=== PATIENT | female | born 1995 | race African-American/Black ===

== ENCOUNTER → 2020-11-19 14:02 | Outpatient (CLI) | payer BC, SELFPAY ==
--- NOTE | ~2020-11-19 | US_ITS ---
EXAMINATION: US OB >= 14 weeks Fetus DATE: 11/19/2020 15:10 INDICATION: Second trimester anatomic survey TECHNIQUE: Real-time ultrasound of the pelvis was performed. COMPARISON: None. FINDINGS: There is a single living fetus in vertex presentation. The placenta is anterior and 8.1 cm from the i nternal cervical os. heart rate is 148 beats per minute (bpm). cardiac activity and feta l movement are noted. The amniotic fluid index is subjectively normal. The left ventricular outflow tract is not well demonstrated due to positioning. The following f etal anatomy was identified as normal: 4 chamber heart 3 vessel cord cord insertion kidneys urinary bladder stomach spine diaphragm ventricles cisterna magna cerebellum The following biometric data were obtained: Biparietal diameter (BPD): 5.0 cm; head circumference (HC): 18.6 cm; abdominal circumference (AC): 15 .9 cm; femur length (FL): 3.5 cm. These measurements are concordant. Estimated weight is 403 g +/- 60 g, which correlates with the 6th percentile when 03/23/2021 is used as estimated date of delivery. As single measurements, these parameters are each equal to the following estimated gestational ages w ith ranges of +/- 2 standard deviations: BPD: 21 weeks 1 days ( 19 weeks 3 days - 22 weeks 6 days). HC: 21 weeks 0 days ( 19 weeks 3 days - 22 weeks 3 days). AC: 21 weeks 0 days ( 19 weeks 0 days - 23 weeks 1 days). FL: 21 weeks 2 days ( 19 weeks 4 days - 23 weeks 1 days). estimated gestational age based solely on measurements from this exam is 21 weeks 1 days +/- 1 weeks 3 days. IMPRESSION: 1. Single living fetus in vertex presentation. 2. Estimated weight is 403 g +/- 60 g, which correlates with the 6th percentile when 03/23/2021 is used as estimated date of delivery. 3. Left ventricular outflow tract not well demonstrated due to positioning. Reviewed, dictated and finalized at location A. IMPRESSION: 1. Single living fetus in vertex presentation. 2. Estimated weight is 403 g +/- 60 g, which correlates with the 6th perc entile when 03/23/2021 is used as estimated date of delivery. 3. Left ventricular outflow tract not well demonstrated due to positionin g.
== END ==
PROVIDERS: Visit Provider Obstetrics & Gynecology
DX: Z36.9 Encounter for antenatal screening, unspecified (principal); Z3A.21 21 weeks gestation of pregnancy
CPT/HCPCS: 76805

== ENCOUNTER 2021-03-26 06:06 | Inpatient (IN) | payer BC, SELFPAY ==
--- NOTE | 2021-03-25 16:27 | PC.NURSE ---
PATIENT STATES SHE HAS NOT HAD ANY MISCARRIAGES AND THIS IS HER SECOND HAS PATIENT G 5, P1 AND 3-SAB
[2021-03-26] VITALS (134 sets, daily range): BP systolic 99–135; BP diastolic 55–104; PULSE 63–151; RESP 18; TEMP 36.1–36.6; O2SAT 87–100; BMI 31.4
[2021-03-26 07:09] LABS: Basophils Absolute Auto 0.1 K/mm3 (0.0-0.1); Basophils Percent Auto 0.6 % (0.2-1.2); Eosinophils Absolute Auto 0.2 K/mm3 (0-0.3); Eosinophils Percent Auto 2.5 % (0-4.4); Hematocrit 34.7 % (37.0-47.0); Hemoglobin 11.5 g/dL (12.0-15.0); Immature Granulocyte Absolute 0.08 K/mm3 (0.00-0.031); Lymphocytes Absolute Auto 1.77 K/mm3 (0.9-3.2); Lymphocytes Percent Auto 21.2 % (18.3-44.2); Mean Corpuscular HGB Conc 33.1 g/dl (32-36); Mean Corpuscular Hemoglobin 29.9 pg (26-34); Mean Corpuscular Volume 90.1 fl (80-100); Monocytes Absolute Auto 0.6 K/mm3 (0.1-0.6); Monocytes Percent Auto 7.2 % (2.6-8.5); Neutrophils Absolute Auto 5.6 K/mm3 (1.3-6.7); Neutrophils Percent Auto 67.5 % (45.5-73.1); Platelet Count Result 177 k/mm3 (150-375); Red Blood Count 3.85 M/mm3 (4.2-5.4); Red Cell Distribution Width 17.3 % (11.5-14.5); White Blood Count 8.3 K/mm3 (4.5-10.0)
[2021-03-26] MEDS: LACTATED RINGERS 1,000 ML 125 ML IV CONT ×2 (07:23→12:40)
[2021-03-26] MEDS: OXYTOCIN 30 UNITS/NS 500 ML 30 UNITS/500 ML BAG IV CONT (07:29)
--- NOTE | 2021-03-26 07:36 | WPDOBADMIT ---
Obstetrics - Admit Note Admission Note: record reviewed. No pertinent additions to the history and/or any subsequent changes in the physical findings that are not consistent with the expected course of the were found. Additions to the history and/or subsequent changes in the physical findings follow. Here for MIL. Cervix 2-3/70/-2 AROM with clear fluid. FHTs reactive
--- NOTE | 2021-03-26 08:04 | LDADM ---
This patient, Monica Haley, was admitted to Labor/Delivery/Recovery 104 on 03/26/21 at 06:06. Plans for labor, pain management and were discussed with patient. Patient/family oriented to hospital policies and general routines including ID bracelet, bed and alarms, visiting hours, pain management, procedures, bathroom and other care routines, personal items, smoking policy, room service/diet and guest tray routines, security routines, call light and visiting hours. Patient/Family are encouraged to report perceived risks to care and to ask questions if they do not understand what they are told or what they should do. See OBIX for further documentation.
--- NOTE | 2021-03-26 09:29 | WPDANESEPP ---
Anes - Eval Pre Procedure Procedure: Labor epidural Date/Time: 03/26/21 09:29 Surgeon: Bobby Preop Diagnosis: Abd pain with contractions Pre Op Diagnosis: iol Patient Data Age: 25 Gender: F Height: 1.7 m Weight: 91 kg Last Vital Signs Pulse 70 03/26/21 09:00 BP 115/67 03/26/21 09:00 Allergies Allergy/AdvReac Type Severity Reaction Status Date / Time No Known Allergies Allergy Verified 03/26/21 06:44 Home Medications Medication Instructions Recorded Confirmed Type ergocalciferol (vitamin D2) 1,250 mcg PO 2XW 03/25/21 03/26/21 History [Vitamin D2] prenat.vits,otis,jvn-uvnh-yowsz 1 tablet PO DAILY 03/25/21 03/26/21 History [ #2] Laboratory Tests 03/26/21 03/26/21 03/26/21 06:47 06:47 06:47 WBC 8.3 K/mm3 K/mm3 (4.5-10.0) RBC 3.85 M/mm3 L M/mm3 (4.2-5.4) Hgb 11.5 g/dL L g/dL (12.0-15.0) Hct 34.7 % L % (37.0-47.0) MCV 90.1 fl fl (80-100) MCH 29.9 pg pg (26-34) MCHC 33.1 g/dl g/dl (32-36) RDW 17.3 % H % (11.5-14.5) Plt Count 177 k/mm3 k/mm3 (150-375) MPV 12.0 fl H fl (7.4-10.4) Immature Gran % (Auto) 1.0 % H % (0-0.5) Neut % (Auto) 67.5 % % (45.5-73.1) Lymph % (Auto) 21.2 % % (18.3-44.2) [place] % (Auto) 7.2 % % (2.6-8.5) Eos % (Auto) 2.5 % % (0-4.4) Baso % (Auto) 0.6 % % (0.2-1.2) Lymph # (Auto) 1.77 K/mm3 K/mm3 (0.9-3.2) [place] # (Auto) 0.6 K/mm3 K/mm3 (0.1-0.6) Eos # (Auto) 0.2 K/mm3 K/mm3 (0-0.3) Baso # (Auto) 0.1 K/mm3 K/mm3 (0.0-0.1) Abs Immat Gran (auto) 0.08 K/mm3 H K/mm3 (0.00-0.031) Absolute Neuts (auto) 5.6 K/mm3 K/mm3 (1.3-6.7) Absolute Nucleated RBC 0.0 K/mm3 K/mm3 (0.0-0.012) Nucleated RBC % 0.0 % % (0.0-0.2) RPR Pending Blood Type O Positive Antibody Screen Positive Antibody Identification Pending Antigen Identification Pending ALESSIO, IgG Interpret Pending ALESSIO, Poly Interpret Pending ALESSIO, Complement Interp Pending : gestational age HCG: positive Patient hx anesthesia problems: none Family hx anesthesia problems: none Results Review: All pre-operative results and documents have been reviewed as part of the pre-operative evaluation. [facility] Past Medical History Medical History Migraines Obesity and not yet delivered Family History Family History Other No pertinent family history Social History Social History Smoking status: Never smoker Substance use: never Spiritual care concerns: No Exam Day of Procedure 03/26/21 09:29
[2021-03-26] MEDS: SODIUM CHLORIDE 0.9% IV 1,000 ML 125 ML I-UTERINE (12:40)
[2021-03-26] MEDS: SODIUM CHLORIDE 0.9% IV 300 ML 600 ML I-UTERINE (12:40)
--- NOTE | 2021-03-26 16:03 | P.PCNOB_ITS ---
OB - Delivery Note Procedure Delivery date: 03/26/21 Procedure: events: Labor Induction Intrapartal events: None Induction method: AROM and per pitocin protocol Delivery monitor: external FHT and internal uterine Route of delivery: Laceration Description: Vaginal - 1st Degree Delivery repair: vicryl (3-0) Specimen: No Quantitative Blood Loss (ml): 75 Anesthesia type: Epidural Disposition: floor [place] Baby Date of : 03/26/21 Weeks of gestation at delivery: 39 presentation: vertex position: Right Occiput Anterior Placenta delivery description: Spontaneous cord vessel description: 3 Vessels score one minute: 9 score five minutes: 9 Narrative: meconium noted with delivery of body; infant cried immediately and was vigorous
--- NOTE | 2021-03-26 16:04 | P.DS_ITS ---
DS: Admitting Diagnosis Discharge Date 03/27/21 Admitting Diagnosis IUP 39 wks MIL DS: Discharge Diagnosis Discharge Diagnosis (1) (normal spontaneous vaginal delivery): Code(s): O80 - Encounter for full-term uncomplicated delivery Status: Acute OB - DS: Summary OB Procedures : Ultrasound OB Procedures Intrapartum: Spontaneous Vag Delivery OB Procedures: : None Peripartum Data Infant Delivery Method: Natural Vaginal Laceration Description: Vaginal - 1st Degree complications: none Status at Discharge Functional status at discharge: independent ambulation Overall status at discharge: patient is progressing back to baseline Time Spent with Patient Time attestation: Total time spent providing and/or coordinating discharge services: DS: Data Data Completed and Pending Labs on day of discharge: Labs from last 24 hours 03/26/21 03/26/21 03/26/21 06:47 06:47 06:47 WBC 8.3 RBC 3.85 L Hgb 11.5 L Hct 34.7 L MCV 90.1 MCH 29.9 MCHC 33.1 RDW 17.3 H Plt Count 177 MPV 12.0 H Immature Gran % (Auto) 1.0 H Neut % (Auto) 67.5 Lymph % (Auto) 21.2 [place] % (Auto) 7.2 Eos % (Auto) 2.5 Baso % (Auto) 0.6 Lymph # (Auto) 1.77 [place] # (Auto) 0.6 Eos # (Auto) 0.2 Baso # (Auto) 0.1 Abs Immat Gran (auto) 0.08 H Absolute Neuts (auto) 5.6 Absolute Nucleated RBC 0.0 Nucleated RBC % 0.0 RPR Pending Blood Type O Positive Antibody Screen Positive Antibody Identification Pending Antigen Identification Pending ALESSIO, IgG Interpret Not Performed ALESSIO, Poly Interpret Negative ALESSIO, Complement Interp Not Performed Discharge Plan Discharge Attending physician on discharge: Chandrika Sidhu Discharging Clinician: Chandrika Sidhu Anticipated Discharge Date/Time: 03/28/21 16:05 Patient Disposition: Home, Self-Care Activity: may shower and pelvic rest Diet: regular Patient Instructions: Antibiotic Form Stand Alone Forms: General Discharge Information Follow-up/Referrals: Markus Rosales MD [Physician] - 6 Weeks Discharge Medications: Continued ergocalciferol (vitamin D2) [Vitamin D2] 1,250 mcg (50,000 unit) Capsule 1,250 mcg PO 2XW RF: 0 #2 Tablet 1 tablet PO DAILY RF: 0 Date of admission: 03/26/21 06:06 Primary Care 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
[2021-03-26] MEDS: OXYTOCIN 30 UNITS/NS 500 ML 30 UNITS/500 ML BAG 125 UNITS IV CONT (16:29)
[2021-03-26] MEDS: IBUPROFEN 600 MG TABLET PO (18:31)
--- NOTE | 2021-03-26 19:10 | OBPPTRN ---
Patient transferred to post room #278 via wheelchair. Support person present. Oriented to unit, room, information board, rooming in, admission packet and security measures. Patient verbalizes understanding.
[2021-03-26] MEDS: ACETAMINOPHEN 325 MG TABLET 650 MG PO (21:36)
[2021-03-27] MEDS: IBUPROFEN 600 MG TABLET PO ×3 (01:55→17:56)
[2021-03-27 04:45] VITALS: BP 104/63; PULSE 60; RESP 18; TEMP 36.5; O2SAT 100
[2021-03-27 05:01] LABS: Hematocrit 33.8 % (37.0-47.0); Hemoglobin 10.9 g/dL (12.0-15.0)
[2021-03-27 07:30] VITALS: BP 115/72; PULSE 67; RESP 16; TEMP 36.6; O2SAT 99
--- NOTE | 2021-03-27 07:50 | PM.OBPNVD ---
OB - PN: Subj Subjective Date/time seen: 03/27/21 07:50 Patient comments: no complaints and pain well controlled baby status: doing well and bottle feeding well OB - PN: Obj Data Labs CBC & Chem 7: 03/27/21 04:34 Labs: Laboratory Results - last 24 hr 03/26/21 03/27/21 06:47 04:34 Hgb 10.9 L Hct 33.8 L Blood Type O Positive Antibody Screen Positive Antibody Identification Anti-M Antigen Identification Cancelled ALESSIO, IgG Interpret Not Performed ALESSIO, Poly Interpret Negative ALESSIO, Complement Interp Not Performed OB - PN A/P Plan day: 1 Plan: routine care Time Spent With Patient Time: Total time spent is greater than 50% in coordination of care (as documented) at patient's floor/unit and/or counseling patient: Exam : Bimanual exam- vagina & uterus: other (Uterus firm, nt @U)
[2021-03-27 08:00] VITALS: PULSE 67; RESP 16; O2SAT 99
--- NOTE | 2021-03-27 09:00 | PC.NURSE ---
Consult with pt., mother is bottle feeding upon entering. Mother states she puts infant to breast most feedings, if does not appear to be satisfied she will bottle feed after. Mother has a pump at the bedside and states she pumps if she chooses to bottle feed. Mother reports is eagerly feeding with without issue. Requested mother call out next feeding for observation per policy. Reviewed infant feeding cues, frequencies, duration of feedings, feeding elimination flow sheet, and signs of adequate intake. Demonstrated stimulation techniques to wake for feeding. Reviewed signs of a correct latch, effective nursing and suck swallow ratio. Nipple care reviewed of lanolin after feedings and warm compresses as needed. Instructed feeding should be initiated three hours from start of last feeding or if feeding cues are noted before. Mother voiced understanding of information shared. Mother reports she breastfed first child with supplementation at times and will feed this child the same.
[2021-03-27] MEDS: DOCUSATE SODIUM 100 MG CAPSULE PO (10:14)
[2021-03-27] MEDS: MULTIVIT/MIN/PREN/FOL AC/IRON TABLET 1 TAB PO (10:15)
--- NOTE | 2021-03-27 10:43 | WPDANLDPN2 ---
Anes-Prog Note L&D Date/Time: 03/27/21 10:43 Comfortable throughout: labor and delivery Neuraxial method: epidural Epidural/Spinal procedure site: tender Neuro status: Neuro function grossly intact. Cardiovascular status: normal Respiratory status: normal Airway patency: baseline Mental status: baseline Post-Op hydration status: normal Vital Signs: Last Vital Signs Temp 97.8 F 03/27/21 07:30 Pulse 67 03/27/21 08:00 Resp 16 03/27/21 08:00 BP 115/72 03/27/21 07:30 Pulse Ox 99 03/27/21 08:00 Pain score (VAS): 0 I/O: Intake & Output 03/26/21 03/27/21 03/27/21 23:59 07:59 15:59 Intake Total 500 Output Total 290 Balance 210 Post-procedural complaints: none Patient feedback: Patient satisfied with anesthetic care.
[2021-03-27 11:51] VITALS: BP 122/88; PULSE 66; RESP 16; TEMP 36.3; O2SAT 97
[2021-03-27 13:52] LABS: Rapid Plasma Reagin Non-Reactive (NonReactive)
== END 2021-03-27 18:45 | disposition home or self-care (01) | DRG 807 ==
LOC: ANHLDR 16:05 → ANHOB2 03-27 09:32 → ANHLDR 03-30 09:11 → ANHOB2 03-30 09:11
PROVIDERS: Admitting Provider Obstetrics & Gynecology Gynecology; Visit Provider Obstetrics & Gynecology Gynecology
DX: O77.0 Labor and delivery complicated by meconium in amniotic fluid (principal); Z37.0 Single live birth; O70.0 First degree perineal laceration during delivery; Z3A.39 39 weeks gestation of pregnancy
CPT/HCPCS: 36415; 85014; 85018; 85025; 86592; 86850; 86870; 86880; 86900; 86901; 86902; 86905; A9270; J2590; J2795; J7030; J7120